=== PATIENT | male | born 1955 | race Caucasian/White ===

== ENCOUNTER → 2018-09-21 | Outpatient (CLI) | payer OTHER ==
[~2018-09-21] MED LIST: IRBESARTAN75 M1 PO; NAPROSYN500 MG PO; NORFLEX100 MG PO; VITAMIN B1250 MCG PO
== END | disposition home or self-care (01) ==
LOC: US 07:14
DX: N28.9 Disorder of kidney and ureter, unspecified (principal); I10 Essential (primary) hypertension

== ENCOUNTER → 2021-04-07 | Outpatient (CLI) | payer OTHER ==
[2021-04-07 10:09] LABS: BUN 9 mg/dl (7-24); CHLORIDE 95 mmol/L (98-107); CREATININE 0.92 mg/dL (0.70-1.30); POTASSIUM 4.5 mmol/L (3.5-5.1); SODIUM 127 mmol/L (136-145)
== END | disposition home or self-care (01) ==
LOC: LAB 09:00
PROVIDERS: ATTEND Internal Medicine
DX: E87.1 Hypo-osmolality and hyponatremia (principal)

== ENCOUNTER → 2022-10-13 | Outpatient (CLI) | payer MEDICARE ==
[2022-10-13 10:11] LABS: BUN 10 mg/dl (9-23); CHLORIDE 98 mmol/L (98-107)
== END | disposition home or self-care (01) ==
LOC: LAB 09:17
PROVIDERS: ATTEND Internal Medicine
DX: E87.1 Hypo-osmolality and hyponatremia (principal); D64.9 Anemia, unspecified

== ENCOUNTER → 2022-11-02 | Day surgery (SDC) | payer MEDICARE ==
[~2022-11-02] VITALS: Ht 180.3 cm; Wt 74.8 kg
[2022-11-02 07:54] VITALS: BP 143/80
[2022-11-02 08:52] VITALS: BP 105/57
[2022-11-02 09:07] VITALS: BP 112/67
[2022-11-02 09:19] VITALS: BP 123/77
[2022-11-02 09:22] VITALS: BP 123/77
== END | disposition home or self-care (01) ==
LOC: SDC 10-29 12:30
PROVIDERS: ATTEND Surgery
DX: Z12.11 Encounter for screening for malignant neoplasm of colon (principal); I10 Essential (primary) hypertension; F17.210 Nicotine dependence, cigarettes, uncomplicated; Z86.19 Personal history of other infectious and parasitic diseases; Z79.899 Other long term (current) drug therapy
CPT/HCPCS: 00812; G0121

== ENCOUNTER → 2022-11-11 | Outpatient (CLI) | payer MEDICARE ==
[2022-11-11 08:55] LABS: BASO % 0.3 % (0.0-1.0); EOS # 0.2 10*3/uL (0.0-0.4); EOS % 3.2 % (1.0-4.0); HEMATOCRIT 35.4 % (42.0-52.0); LYMPH # 1.3 10*3/uL (1.3-4.4); LYMPH % 18.1 % (27.0-41.0); MEAN CELL VOLUME 102.6 fl (80.0-94.0); MEAN CORPUSCULAR HGB 35.1 pg (27.0-31.0); MEAN CORPUSCULAR HGB CONC 34.2 g/dl (33.0-37.0); MEAN PLATELET VOLUME 9.2 fl (9.6-12.3); MONO # 0.5 10*3/uL (0.1-1.0); MONO % 7.4 % (3.0-9.0); NEUT # 4.9 10*3/uL (2.3-7.9); NEUT % 70.7 % (47.0-73.0); PLATELET COUNT AUTOMATED 238 10*3/uL (130-400); RED BLOOD COUNT 3.45 10*6/uL (4.50-5.90); RED CELL DISTRI WIDTH 13.2 % (0-14.5); WHITE BLOOD COUNT 6.9 10*3/uL (4.8-10.8)
[2022-11-11 09:15] LABS: BUN 9 mg/dl (9-23); CHLORIDE 98 mmol/L (98-107); POTASSIUM 4.1 mmol/L (3.4-5.1)
== END | disposition home or self-care (01) ==
LOC: LAB 08:26
PROVIDERS: ATTEND Internal Medicine
DX: E87.1 Hypo-osmolality and hyponatremia (principal); D64.9 Anemia, unspecified

== ENCOUNTER 2023-07-27 10:15 | Emergency (ER) | payer MEDICARE ==
[~2023-07-27] VITALS: Ht 180.3 cm; Wt 65.8 kg
[2023-07-27 11:20] LABS: BASO % 0.4 % (0.0-1.0); EOS # 0.2 10*3/uL (0.0-0.4); HEMATOCRIT 30.5 % (42.0-52.0); LYMPH # 1.2 10*3/uL (1.3-4.4); LYMPH % 14.7 % (27.0-41.0); MEAN CELL VOLUME 100.7 fl (80.0-94.0); MEAN CORPUSCULAR HGB 33.7 pg (27.0-31.0); MEAN CORPUSCULAR HGB CONC 33.4 g/dl (33.0-37.0); MEAN PLATELET VOLUME 9.7 fl (9.6-12.3); MONO # 0.7 10*3/uL (0.1-1.0); MONO % 7.8 % (3.0-9.0); NEUT # 6.3 10*3/uL (2.3-7.9); NEUT % 74.7 % (47.0-73.0); PLATELET COUNT AUTOMATED 318 10*3/uL (130-400); RED BLOOD COUNT 3.03 10*6/uL (4.50-5.90); RED CELL DISTRI WIDTH 13.5 % (0-14.5); WHITE BLOOD COUNT 8.4 10*3/uL (4.8-10.8)
[2023-07-27 11:27] LABS: ACT PARTIAL THROMBO TIME 32.2 SECONDS (20.0-32.1)
[2023-07-27 11:38] LABS: ALKALINE PHOSPHATASE 230 U/L (46-116); BUN 7 mg/dl (9-23); CHLORIDE 97 mmol/L (98-107); LIPASE 31 U/L (12-53); SGPT/ALT 30 U/L (5-49); TOTAL PROTEIN 8.2 gm/dL (6.0-8.0)
[2023-07-27 11:39] LABS: BILIRUBIN Negative (Negative); BLOOD Negative (Negative); CLARITY Clear (Clear); COLOR Yellow (Yellow); GLUCOSE Negative (Negative); KETONE Negative (Negative); LEUKO ESTERASE Negative (Negative); NITRITE Negative (Negative)
[2023-07-27 13:40] LABS: MUCOUS TRACE; RBC 0-2 rbc/hpf (0-2)
== END 2023-07-27 17:37 | disposition short-term general hospital (02) ==
LOC: ED 10:15
PROVIDERS: Emergency Medicine
DX: R10.11 Right upper quadrant pain (principal); R16.0 Hepatomegaly, not elsewhere classified; R63.4 Abnormal weight loss; I10 Essential (primary) hypertension; Z98.890 Other specified postprocedural states

== ENCOUNTER 2023-12-09 17:13 | Inpatient (IN) | payer OTHER ==
[~2023-12-09] VITALS: Ht 180.3 cm; Wt 48.5 kg
[~2023-12-09 17:13] MED LIST changes: +B12 ACTIVE1000 MCG PO; +CEPHULAC10 GM/151 PO; +FELODIPINE2.5 MG PO; +FOAM BANDAGE 5X5 T ONE; +MEGESTROL400 MG/10 PO; +MORPHINE SULFAT15 M7 PO; +OXYCODONE HCL10 M1 PO; +SENEXON-S 50-81 EACH PO
[2023-12-09] MEDS ORDERED: MORPHINE Sulfate 2 MG/ML SYR IV PRN (17:20)
[2023-12-09] MEDS ORDERED: DIAZEPAM 10 MG/2 ML SYR IV PRN (17:20)
[2023-12-09] MEDS ORDERED: ATROPINE SULFATE 1% 2 ML BOTTLE SL PRN (17:25)
[2023-12-09] MEDS ORDERED: Albuterol Sulf/Ipratropium 3 ML VIAL NEB SCH (17:25)
[2023-12-09] MEDS ORDERED: MORPHINE Sulfate 50 MG in SODIUM CHLORIDE 0.9% 45 ML IV SCH (18:00)
[2023-12-09] MEDS ORDERED: SODIUM CHLORIDE 0.9% 1,000 ML IV ONE (18:05)
[2023-12-09 20:00] VITALS: BP 122/83
[2023-12-10 08:00] VITALS: BP 108/55
[2023-12-10] MEDS ORDERED: Albuterol Sulf/Ipratropium 3 ML VIAL NEB PRN (09:50)
[2023-12-10 12:00] VITALS: BP 90/50
[2023-12-10] MEDS ORDERED: SODIUM CHLORIDE 0.9% 1,000 ML IV SCH (18:00)
[2023-12-11] VITALS: BP 106/72
[2023-12-11] MEDS ORDERED: MORPHINE SULFATE IV SCH (11:05)
[2023-12-11] MEDS ORDERED: SODIUM CHLORIDE 0.9% IV SCH (11:05)
[2023-12-11] MEDS ORDERED: fentaNYL CITRATE 1,000 MCG in SODIUM CHLORIDE 0.9% 230 ML IV SCH (20:00)
[2023-12-12] MEDS ORDERED: ACETAMINOPHEN 650 MG SUPP R PRN (06:35)
[2023-12-12] MEDS ORDERED: SODIUM CHLORIDE 0.9% 1,000 ML IV SCH (07:20)
== END 2023-12-12 10:07 | DRG 871 ==
LOC: 4E 17:13
PROVIDERS: ADMIT Internal Medicine; ATTEND Internal Medicine
DX: A41.9 Sepsis, unspecified organism (principal); E43 Unspecified severe protein-calorie malnutrition; K65.2 Spontaneous bacterial peritonitis; G93.41 Metabolic encephalopathy; E87.20 Acidosis, unspecified; R64 Cachexia; R18.8 Other ascites; D61.818 Other pancytopenia; Z68.1 Body mass index [BMI] 19.9 or less, adult; R16.0 Hepatomegaly, not elsewhere classified; E83.52 Hypercalcemia; R74.01 Elevation of levels of liver transaminase levels; K74.60 Unspecified cirrhosis of liver; D49.0 Neoplasm of unspecified behavior of digestive system; R65.20 Severe sepsis without septic shock; E78.5 Hyperlipidemia, unspecified; I10 Essential (primary) hypertension; J45.909 Unspecified asthma, uncomplicated; W18.39XA Other fall on same level, initial encounter; Z79.899 Other long term (current) drug therapy; Z79.01 Long term (current) use of anticoagulants; Y93.89 Activity, other specified; Y92.89 Other specified places as the place of occurrence of the external cause; Y99.8 Other external cause status; Z79.2 Long term (current) use of antibiotics